=== PATIENT | male | born 1955 | race Caucasian/White ===

== ENCOUNTER → 2017-01-21 | Outpatient (REF) | payer OTHER ==
[2017-01-21 11:43] LABS: ALBUMIN 3.9 GM/DL (3.2-5.2); ALBUMIN/GLOBULIN RATIO 1.44 (1.00-1.93); ALKALINE PHOSPHATASE 54 U/L (45-117); ALT/SGPT 32 U/L (12-78); ANION GAP 6 MEQ/L (8-16); AST/SGOT 24 U/L (15-37); BILIRUBIN,TOTAL 0.8 MG/DL (0.2-1.0); BLOOD UREA NITROGEN 11 MG/DL (7-18); CALCIUM LEVEL 8.9 MG/DL (8.8-10.2); CARBON DIOXIDE LEVEL 32 MEQ/L (21-32); CHLORIDE LEVEL 101 MEQ/L (98-107); CHOLESTEROL LEVEL 132 MG/DL (<200); CREATININE FOR GFR 0.64 MG/DL (0.70-1.30); GLOMERULAR FILTRATION RATE > 60.0 (>49); GLUCOSE, FASTING 142 MG/DL (80-110); POTASSIUM SERUM 4.5 MEQ/L (3.5-5.1); SODIUM LEVEL 139 MEQ/L (136-145); TOTAL PROTEIN 6.6 GM/DL (6.4-8.2); TRIGLYCERIDES LEVEL 176 MG/DL (<150)
== END ==
LOC: M SFHCPLAZ 07:50
PROVIDERS: ATTEND Nurse Practitioner Family
DX: E11.9 Type 2 diabetes mellitus without complications (principal)

== ENCOUNTER → 2017-06-05 | Outpatient (CLI) | payer OTHER ==
[2017-06-05 20:23] LABS: URIC ACID 5.2 MG/DL (3.5-7.2)
[2017-06-10 00:06] LABS: LYME PCR FOR BODY FLUID Negative (Negative)
[2017-06-11 14:15] LABS: Lyme Disease IgG/IgM Antibodie <0.91 ISR (0.00-0.90); Lyme Disease IgM Ab Quantitati <0.80 index (0.00-0.79)
== END ==
LOC: M LRY 09:09
PROVIDERS: ATTEND Orthopaedic Surgery
DX: M72.0 Palmar fascial fibromatosis [Dupuytren] (principal); M79.89 Other specified soft tissue disorders; M65.331 Trigger finger, right middle finger

== ENCOUNTER → 2017-12-06 | Outpatient (REF) | payer OTHER ==
[2017-12-06 11:26] LABS: ALBUMIN 4.1 GM/DL (3.2-5.2); ALBUMIN/GLOBULIN RATIO 1.46 (1.00-1.93); ALKALINE PHOSPHATASE 58 U/L (45-117); ALT/SGPT 30 U/L (12-78); ANION GAP 6 MEQ/L (8-16); AST/SGOT 22 U/L (7-37); BILIRUBIN,TOTAL 0.6 MG/DL (0.2-1.0); BLOOD UREA NITROGEN 11 MG/DL (7-18); CARBON DIOXIDE LEVEL 30 MEQ/L (21-32); CHLORIDE LEVEL 102 MEQ/L (98-107); CREATININE FOR GFR 0.74 MG/DL (0.70-1.30); GLOMERULAR FILTRATION RATE > 60.0 (>49); GLUCOSE, FASTING 162 MG/DL (70-100); POTASSIUM SERUM 4.7 MEQ/L (3.5-5.1); SODIUM LEVEL 138 MEQ/L (136-145); TOTAL PROTEIN 6.9 GM/DL (6.4-8.2)
[2017-12-06 12:38] LABS: ESTIMATED AVERAGE GLUCOSE 197 MG/DL (60-110); HEMOGLOBIN A1c 8.5 %
== END ==
LOC: M SFHCPLAZ 08:27
DX: E11.9 Type 2 diabetes mellitus without complications (principal)

== ENCOUNTER → 2018-03-10 | Outpatient (REF) | payer OTHER | LOC: M SFHCPLAZ 15:11 | DX: E78.5 Hyperlipidemia, unspecified (principal); I10 Essential (primary) hypertension; E11.9 Type 2 diabetes mellitus without complications; M06.4 Inflammatory polyarthropathy ==

== ENCOUNTER → 2018-03-11 | Outpatient (REF) | payer OTHER ==
[2018-03-11 11:20] LABS: BASO % 0.6 % (0.0-1.0); EOS # 0.1 10^3/uL (0.0-0.50); EOS % 1.4 % (0.0-3.0); HEMATOCRIT 38.5 % (42.0-52.0); HEMOGLOBIN 13.4 g/dl (13.5-17.5); IMMATURE GRANULOCYTE % 0.3 % (0-3.0); LYMPH # 1.3 10^3/uL (1.5-4.5); LYMPH % 36.1 % (24.0-44.0); MEAN CORPUSCULAR HEMOGLOBIN 31.4 pg (27.0-33.0); MEAN CORPUSCULAR HGB CONC 34.8 g/dl (32.0-36.5); MEAN CORPUSCULAR VOLUME 90.2 fl (80.0-96.0); MONO # 0.3 10^3/uL (0.0-0.8); MONO % 8.6 % (0.0-5.0); NEUTROPHILS # 1.9 10^3/uL (1.8-7.7); PLATELET COUNT, AUTOMATED 120 10^3/uL (150-450); RED BLOOD COUNT 4.27 10^6/uL (4.30-6.10); RED CELL DISTRIBUTION WIDTH 12.1 % (11.5-14.5); WHITE BLOOD COUNT 3.5 10^3/uL (4.0-10.0)
[2018-03-11 12:18] LABS: ALBUMIN 3.8 GM/DL (3.2-5.2); ALBUMIN/GLOBULIN RATIO 1.36 (1.00-1.93); ALKALINE PHOSPHATASE 55 U/L (45-117); ALT/SGPT 32 U/L (12-78); ANION GAP 5 MEQ/L (8-16); AST/SGOT 20 U/L (7-37); BILIRUBIN,TOTAL 0.5 MG/DL (0.2-1.0); BLOOD UREA NITROGEN 11 MG/DL (7-18); CALCIUM LEVEL 8.8 MG/DL (8.8-10.2); CARBON DIOXIDE LEVEL 31 MEQ/L (21-32); CHLORIDE LEVEL 105 MEQ/L (98-107); CREATININE FOR GFR 0.75 MG/DL (0.70-1.30); GLOMERULAR FILTRATION RATE > 60.0 (>49); GLUCOSE, FASTING 107 MG/DL (70-100); POTASSIUM SERUM 4.4 MEQ/L (3.5-5.1); SODIUM LEVEL 141 MEQ/L (136-145); TOTAL PROTEIN 6.6 GM/DL (6.4-8.2)
[2018-03-11 12:58] LABS: ESTIMATED AVERAGE GLUCOSE 169 MG/DL (60-110); HEMOGLOBIN A1c 7.5 %
== END ==
LOC: M SFHCPLAZ 08:09
DX: E78.5 Hyperlipidemia, unspecified (principal); I10 Essential (primary) hypertension; E11.9 Type 2 diabetes mellitus without complications; M06.4 Inflammatory polyarthropathy

== ENCOUNTER → 2018-06-17 | Outpatient (REF) | payer OTHER ==
[2018-06-17 12:11] LABS: HEMATOCRIT 37.6 % (42.0-52.0); HEMOGLOBIN 12.8 g/dl (13.5-17.5); MEAN CORPUSCULAR HEMOGLOBIN 31.3 pg (27.0-33.0); MEAN CORPUSCULAR VOLUME 91.9 fl (80.0-96.0); PLATELET COUNT, AUTOMATED 101 10^3/uL (150-450); RED BLOOD COUNT 4.09 10^6/uL (4.30-6.10); RED CELL DISTRIBUTION WIDTH 12.5 % (11.5-14.5); WHITE BLOOD COUNT 3.1 10^3/uL (4.0-10.0)
[2018-06-17 12:40] LABS: ALBUMIN 4.1 GM/DL (3.2-5.2); ALBUMIN/GLOBULIN RATIO 1.41 (1.00-1.93); ALKALINE PHOSPHATASE 54 U/L (45-117); ALT/SGPT 34 U/L (12-78); ANION GAP 7 MEQ/L (8-16); AST/SGOT 18 U/L (7-37); BILIRUBIN,TOTAL 0.4 MG/DL (0.2-1.0); BLOOD UREA NITROGEN 12 MG/DL (7-18); CALCIUM LEVEL 9.5 MG/DL (8.8-10.2); CARBON DIOXIDE LEVEL 30 MEQ/L (21-32); CHLORIDE LEVEL 104 MEQ/L (98-107); CHOLESTEROL LEVEL 102 MG/DL (<200); CHOLESTEROL RISK RATIO 2.318 (<5); CREATININE FOR GFR 0.75 MG/DL (0.70-1.30); FREE T4 1.05 NG/DL (0.76-1.46); GLOMERULAR FILTRATION RATE > 60.0 (>49); GLUCOSE, FASTING 124 MG/DL (70-100); HDL CHOLESTEROL 44 MG/DL (>40); LDL CHOLESTEROL 32 MG/DL (<100); NON-HDL-C 58 MG/DL; POTASSIUM SERUM 4.9 MEQ/L (3.5-5.1); PSA SCREENING 0.52 NG/ML (< 4.0); SODIUM LEVEL 141 MEQ/L (136-145); TRIGLYCERIDES LEVEL 129 MG/DL (<150)
[2018-06-17 12:54] LABS: ESTIMATED AVERAGE GLUCOSE 123 MG/DL (60-110); HEMOGLOBIN A1c 5.9 %
[2018-06-17 13:02] LABS: CREATININE, URINE 48.5 MG/DL; MALB URINE SIEMENS 12.1 MG/L
[2018-06-17 13:20] LABS: MAU/CREAT RATIO 24.9 MCG/MG (0.0-30.0)
== END ==
LOC: M SFHCPLAZ 08:45
DX: Z00.00 Encounter for general adult medical examination without abnormal findings (principal); Z12.5 Encounter for screening for malignant neoplasm of prostate; E78.5 Hyperlipidemia, unspecified; E11.9 Type 2 diabetes mellitus without complications; I10 Essential (primary) hypertension; N40.1 Benign prostatic hyperplasia with lower urinary tract symptoms; M06.4 Inflammatory polyarthropathy; G57.91 Unspecified mononeuropathy of right lower limb; Z12.11 Encounter for screening for malignant neoplasm of colon; M25.511 Pain in right shoulder; M06.09 Rheumatoid arthritis without rheumatoid factor, multiple sites; Z23 Encounter for immunization
CPT/HCPCS: 84443

== ENCOUNTER → 2018-06-29 | Outpatient (CLI) | payer OTHER | LOC: M LRY 11:18 | DX: M25.711 Osteophyte, right shoulder (principal); M81.0 Age-related osteoporosis without current pathological fracture; S22.31XD Fracture of one rib, right side, subsequent encounter for fracture with routine healing; M25.511 Pain in right shoulder | CPT/HCPCS: 73030 ==

== ENCOUNTER → 2018-06-29 | Outpatient (REF) | payer OTHER ==
[2018-06-29 13:37] LABS: APPEARANCE, URINE HAZY (CLEAR); BACTERIA, URINE AUTO 1+ (NEGATIVE); BILIRUBIN, URINE AUTO NEGATIVE (NEGATIVE); BLOOD, URINE BLOOD 2+ (NEGATIVE); COLOR, URINE YELLOW (YELLOW); GLUCOSE, URINE (UA) AUTO NEGATIVE (NEGATIVE); KETONE, URINE AUTO NEGATIVE (NEGATIVE); LEUKOCYTE ESTERASE, URINE AUTO NEGATIVE (NEGATIVE); MUCUS, URINE SMALL (NEGATIVE); NITRITE, URINE AUTO NEGATIVE (NEGATIVE); PROTEIN, URINE AUTO NEGATIVE (NEGATIVE); RBC, URINE AUTO TNTC /HPF (0-3); SPECIFIC GRAVITY URINE AUTO 1.018 (1.002-1.035); SQUAMOUS EPITHELIAL CELL UR AU 0 /HPF (0-6); UROBILINOGEN, URINE AUTO 0.2 mg/dL (0.0-2.0); WBC, URINE AUTO 1 /HPF (0-3)
== END ==
LOC: M SMT 13:05
DX: N40.1 Benign prostatic hyperplasia with lower urinary tract symptoms (principal); M81.0 Age-related osteoporosis without current pathological fracture; S22.31XD Fracture of one rib, right side, subsequent encounter for fracture with routine healing; M25.511 Pain in right shoulder
CPT/HCPCS: 81001

== ENCOUNTER → 2018-07-06 | Outpatient (CLI) | payer OTHER | LOC: M SMT 08:43 | DX: N40.1 Benign prostatic hyperplasia with lower urinary tract symptoms (principal) | CPT/HCPCS: 52000; 76857 ==

== ENCOUNTER → 2018-07-12 | Outpatient (CLI) | payer OTHER ==
[2018-07-12 12:22] LABS: HEMATOCRIT 36.3 % (42.0-52.0); HEMOGLOBIN 12.8 g/dl (13.5-17.5); MEAN CORPUSCULAR HEMOGLOBIN 31.7 pg (27.0-33.0); MEAN CORPUSCULAR HGB CONC 35.3 g/dl (32.0-36.5); MEAN CORPUSCULAR VOLUME 89.9 fl (80.0-96.0); PLATELET COUNT, AUTOMATED 103 10^3/uL (150-450); RED BLOOD COUNT 4.04 10^6/uL (4.30-6.10); RED CELL DISTRIBUTION WIDTH 12.1 % (11.5-14.5); WHITE BLOOD COUNT 2.9 10^3/uL (4.0-10.0)
[2018-07-12 12:35] LABS: INR 1.16
[2018-07-12 12:36] LABS: PARTIAL THROMBOPLASTIN TIME 31.6 SECONDS (25.4-37.6)
[2018-07-12 12:46] LABS: ANION GAP 5 MEQ/L (8-16); BLOOD UREA NITROGEN 10 MG/DL (7-18); CALCIUM LEVEL 8.8 MG/DL (8.8-10.2); CARBON DIOXIDE LEVEL 30 MEQ/L (21-32); CHLORIDE LEVEL 103 MEQ/L (98-107); CREATININE FOR GFR 0.72 MG/DL (0.70-1.30); GLOMERULAR FILTRATION RATE > 60.0 (>49); GLUCOSE, FASTING 133 MG/DL (70-100); POTASSIUM SERUM 4.6 MEQ/L (3.5-5.1); SODIUM LEVEL 138 MEQ/L (136-145)
== END ==
LOC: M LAB 11:05
DX: D49.4 Neoplasm of unspecified behavior of bladder (principal); Z01.818 Encounter for other preprocedural examination
CPT/HCPCS: 71046

== ENCOUNTER → 2018-07-14 | Outpatient (CLI) | payer OTHER ==
[~2018-07-14] MED LIST: ISOVUE-370 76% 100ML VIAL (Q9967) As Ordered
== END ==
LOC: M RAD 08:24
DX: R31.29 Other microscopic hematuria (principal); N20.0 Calculus of kidney; R16.1 Splenomegaly, not elsewhere classified
CPT/HCPCS: Q9967

== ENCOUNTER → 2018-08-22 | Outpatient (REF) | payer OTHER ==
[2018-08-22 16:06] LABS: BASO % 0.5 % (0.0-1.0); HEMATOCRIT 38.2 % (42.0-52.0); HEMOGLOBIN 13.5 g/dl (13.5-17.5); IMMATURE GRANULOCYTE % 0.3 % (0-3.0); LYMPH # 1.1 10^3/uL (1.5-4.5); LYMPH % 28.8 % (24.0-44.0); MEAN CORPUSCULAR HEMOGLOBIN 31.3 pg (27.0-33.0); MEAN CORPUSCULAR HGB CONC 35.3 g/dl (32.0-36.5); MEAN CORPUSCULAR VOLUME 88.4 fl (80.0-96.0); MONO # 0.3 10^3/uL (0.0-0.8); MONO % 7.8 % (0.0-5.0); NEUTROPHILS # 2.4 10^3/uL (1.8-7.7); NEUTROPHILS % 61.6 % (36.0-66.0); PLATELET COUNT, AUTOMATED 128 10^3/uL (150-450); RED BLOOD COUNT 4.32 10^6/uL (4.30-6.10); RED CELL DISTRIBUTION WIDTH 11.9 % (11.5-14.5)
[2018-08-22 16:36] LABS: ALBUMIN 3.8 GM/DL (3.2-5.2); ALBUMIN/GLOBULIN RATIO 1.41 (1.00-1.93); ALKALINE PHOSPHATASE 52 U/L (45-117); ALT/SGPT 37 U/L (12-78); ANION GAP 8 MEQ/L (8-16); AST/SGOT 21 U/L (7-37); BILIRUBIN,TOTAL 0.5 MG/DL (0.2-1.0); BLOOD UREA NITROGEN 13 MG/DL (7-18); CALCIUM LEVEL 8.8 MG/DL (8.8-10.2); CARBON DIOXIDE LEVEL 28 MEQ/L (21-32); CHLORIDE LEVEL 103 MEQ/L (98-107); FERRITIN 135 NG/ML (26-388); GLOMERULAR FILTRATION RATE > 60.0 (>49); GLUCOSE, FASTING 131 MG/DL (70-100); POTASSIUM SERUM 4.4 MEQ/L (3.5-5.1); SODIUM LEVEL 139 MEQ/L (136-145); TOTAL PROTEIN 6.5 GM/DL (6.4-8.2)
[2018-08-24 08:07] LABS: HEPATITIS B SURFACE ANTIBODY NEGATIVE (POSITIVE)
[2018-08-24 08:18] LABS: HEPATITIS B SURFACE ANTIGEN NEGATIVE (NEGATIVE)
[2018-08-24 08:47] LABS: HEPATITIS B CORE ANTIBODY IGM NEGATIVE (NEGATIVE); HEPATITIS C VIRUS ABY INDEX 0.1 INDEX (<0.8)
[2018-08-25 00:42] LABS: ANA (HEP2) Negative (.); ANTI-MITOCHONDRIAL ANTIBODY 2.1 Units (0.0-20.0); LIVER-KIDNEY MICROSOMAL ABY 1.2 Units (0.0-20.0)
[2018-08-25 00:42] LABS: ANTI-SMOOTH MUSCLE ANTIBODY 9 Units (0-19)
== END ==
LOC: M SFHCPLAZ 14:06
DX: D61.818 Other pancytopenia (principal); K74.60 Unspecified cirrhosis of liver
CPT/HCPCS: 80053

== ENCOUNTER → 2018-08-26 | Outpatient (REF) | payer OTHER | LOC: M LABSMT 09:36 | DX: D49.4 Neoplasm of unspecified behavior of bladder (principal); Z01.818 Encounter for other preprocedural examination; N39.0 Urinary tract infection, site not specified | CPT/HCPCS: 87086 ==

== ENCOUNTER 2018-09-02 05:47 | Day surgery (SDC) | payer OTHER ==
[2018-09-02] MEDS: LR 1,000 ML IV (06:00)
[2018-09-02 06:29] LABS: BEDSIDE GLUCOSE 245 MG/DL (80-115)
[2018-09-02] MEDS ORDERED: PROPOFOL 200 MG/20 ML VIAL As Ordered (07:11)
[2018-09-02] MEDS ORDERED: ROCURONIUM BROMIDE 50 MG/5 ML VIAL As Ordered (07:11)
[2018-09-02] MEDS ORDERED: LIDOCAINE 2% INJ 100 MG/5 ML SDV (FOR ANES.) As Ordered (07:11)
[2018-09-02] MEDS ORDERED: MIDAZOLAM INJ 2 MG/2 ML VIAL (J2250) As Ordered (07:11)
[2018-09-02] MEDS ORDERED: fentaNYL 250 MCG/5 ML INJECTION (J3010) As Ordered (07:11)
[2018-09-02] MEDS: LevoFLOXacin IV 500 MG in APPROPRIATE DILUENT 1 EA IV (07:30)
[2018-09-02] MEDS: CONRAY-60 60% 50ML VIAL (Q9961) As Ordered (08:00)
[2018-09-02] MEDS ORDERED: PHENYLephrine HCL 500 MCG/5 ML (100MCG/ML) SYRINGE (J2370) As Ordered (08:14)
[2018-09-02] MEDS ORDERED: GLYCOPYRROLATE INJ 0.2 MG/ML 2 ML VIAL As Ordered (08:22)
[2018-09-02] MEDS ORDERED: KETOROLAC 60 MG/2 ML VIAL (J1885) As Ordered (08:23)
[2018-09-02] MEDS ORDERED: ONDANSETRON 4MG/2ML VIAL (J2405) As Ordered (08:23)
[2018-09-02] MEDS ORDERED: NEOSTIGMINE 10 MG/10 ML VIAL (J2710) As Ordered (08:23)
[2018-09-02] MEDS ORDERED: FUROSEMIDE 100 MG/10 ML VIAL (J1940) As Ordered (08:29)
[2018-09-02] MEDS ORDERED: ONDANSETRON 4MG/2ML VIAL (J2405) IV (09:15)
[2018-09-02] MEDS ORDERED: LR 1,000 ML IV (09:15)
[2018-09-02] MEDS: NORCO, ANEXSIA 5/325MG TABLET (HYDROcodone/ACETAMINOPHEN) PO (09:20)
[2018-09-02] MEDS ORDERED: fentaNYL 100 MCG/2 ML INJECTION (J3010) As Ordered (09:26)
[2018-09-02] MEDS: fentaNYL 100 MCG/2 ML INJECTION (J3010) IV (09:29)
[2018-09-02] MEDS: PERCOCET 5MG/325MG TAB PO (11:02)
== END 2018-09-02 12:00 | disposition home or self-care (01) ==
LOC: M SDC 05:47
DX: C67.4 Malignant neoplasm of posterior wall of bladder (principal); N40.1 Benign prostatic hyperplasia with lower urinary tract symptoms; N20.0 Calculus of kidney; I10 Essential (primary) hypertension; E78.5 Hyperlipidemia, unspecified; E11.9 Type 2 diabetes mellitus without complications; Z88.0 Allergy status to penicillin; Z79.82 Long term (current) use of aspirin; Z79.84 Long term (current) use of oral hypoglycemic drugs; Z79.899 Other long term (current) drug therapy; Z87.891 Personal history of nicotine dependence
CPT/HCPCS: 52234

== ENCOUNTER → 2018-09-15 | Outpatient (REF) | payer OTHER ==
[2018-09-15 12:34] LABS: ESTIMATED AVERAGE GLUCOSE 151 MG/DL (60-110); HEMOGLOBIN A1c 6.9 %
== END ==
LOC: M SFHCPLAZ 09:17
DX: E11.9 Type 2 diabetes mellitus without complications (principal)
CPT/HCPCS: 83036

== ENCOUNTER → 2018-10-12 | Outpatient (REF) | payer MEDICARE ==
[~2018-10-12] MED LIST changes: +ASPI1TAB PO; +ATOR80TA59 PO; +BASA100I SC; +FINA5TAB2 PO; +FLOM0.4C39 PO; +GABA-843 PO; -ISOVUE-370 76% 100ML VIAL (Q9967) As Ordered; +LISI10TA4 PO; +METF10004 PO
[2018-10-12 11:41] LABS: APPEARANCE, URINE HAZY (CLEAR); BACTERIA, URINE AUTO 1+ (NEGATIVE); BILIRUBIN, URINE AUTO NEGATIVE (NEGATIVE); BLOOD, URINE BLOOD 3+ (NEGATIVE); COLOR, URINE YELLOW (YELLOW); GLUCOSE, URINE (UA) AUTO NEGATIVE (NEGATIVE); KETONE, URINE AUTO NEGATIVE (NEGATIVE); LEUKOCYTE ESTERASE, URINE AUTO 3+ (NEGATIVE); NITRITE, URINE AUTO NEGATIVE (NEGATIVE); PROTEIN, URINE AUTO NEGATIVE (NEGATIVE); RBC, URINE AUTO 133 /HPF (0-3); SPECIFIC GRAVITY URINE AUTO 1.014 (1.002-1.035); SQUAMOUS EPITHELIAL CELL UR AU 0 /HPF (0-6); UROBILINOGEN, URINE AUTO 0.2 mg/dL (0.0-2.0); WBC, URINE AUTO 66 /HPF (0-3)
[2018-10-12 11:44] LABS: HEMOGLOBIN 13.1 g/dl (13.5-17.5); MEAN CORPUSCULAR HEMOGLOBIN 30.9 pg (27.0-33.0); MEAN CORPUSCULAR HGB CONC 34.5 g/dl (32.0-36.5); MEAN CORPUSCULAR VOLUME 89.6 fl (80.0-96.0); PLATELET COUNT, AUTOMATED 130 10^3/uL (150-450); RED BLOOD COUNT 4.24 10^6/uL (4.30-6.10); WHITE BLOOD COUNT 3.7 10^3/uL (4.0-10.0)
[2018-10-12 11:52] LABS: INR 1.05; PROTHROMBIN TIME 13.8 SECONDS (12.1-14.4)
[2018-10-12 11:53] LABS: PARTIAL THROMBOPLASTIN TIME 30.1 SECONDS (25.4-37.6)
[2018-10-12 12:00] LABS: BLOOD UREA NITROGEN 17 MG/DL (7-18); CALCIUM LEVEL 9.2 MG/DL (8.8-10.2); CARBON DIOXIDE LEVEL 29 MEQ/L (21-32); CHLORIDE LEVEL 101 MEQ/L (98-107); CREATININE FOR GFR 0.77 MG/DL (0.70-1.30); GLOMERULAR FILTRATION RATE > 60.0 (>49); GLUCOSE, FASTING 139 MG/DL (70-100); POTASSIUM SERUM 4.7 MEQ/L (3.5-5.1); SODIUM LEVEL 136 MEQ/L (136-145)
== END ==
LOC: M LABSMT 08:24
PROVIDERS: ATTEND Nurse Practitioner Family
DX: Z01.818 Encounter for other preprocedural examination (principal); N20.0 Calculus of kidney

== ENCOUNTER 2018-10-19 05:54 | Day surgery (SDC) | payer MEDICARE ==
[~2018-10-19] VITALS: Ht 170.2 cm; Wt 89.4 kg
[2018-10-19] MEDS ORDERED: LevoFLOXacin IV 500 MG in APPROPRIATE DILUENT 1 EA IV ONE (06:00)
[2018-10-19] MEDS ORDERED: LR 1,000 ML IV ONE (06:00)
[2018-10-19] MEDS ORDERED: CONRAY-60 60% 50ML VIAL (Q9961) As Ordered ONE (07:13)
[2018-10-19] MEDS ORDERED: dexameTHASONE 4 MG/ML 1ML VIAL (J1100) As Ordered ONE (07:20)
[2018-10-19] MEDS ORDERED: PROPOFOL 200 MG/20 ML VIAL As Ordered ONE ×2 (07:20→07:55)
[2018-10-19] MEDS ORDERED: LIDOCAINE 2% INJ 100 MG/5 ML SDV (FOR ANES.) As Ordered ONE (07:20)
[2018-10-19] MEDS ORDERED: MIDAZOLAM INJ 2 MG/2 ML VIAL (J2250) As Ordered ONE (07:21)
[2018-10-19] MEDS ORDERED: fentaNYL 100 MCG/2 ML INJECTION (J3010) As Ordered ONE (07:21)
[2018-10-19] MEDS ORDERED: ONDANSETRON 4MG/2ML VIAL (J2405) As Ordered ONE (08:05)
[2018-10-19] MEDS ORDERED: PHENYLephrine HCL 500 MCG/5 ML (100MCG/ML) SYRINGE (J2370) As Ordered ONE (08:14)
--- NOTE | 2018-10-19 09:40 | REP ---
Retrograde ureterogram: History: Nephrolithiasis. 13 seconds of fluoroscopy time is reported. Findings: A sequence of eight last image hold fluoroscopically obtained spot radiographs of the abdomen document ureteral cannulation, guidewire manipulation and contrast injection, and double pigtail stent placement. No laterality markers are visible. Electronically Signed by Adolfo Rodriguez MD 10/19/2018 07:34 P
[2018-10-19] MEDS ORDERED: fentaNYL 100 MCG/2 ML INJECTION (J3010) IV PRN (09:45)
[2018-10-19] MEDS ORDERED: LR 1,000 ML IV SCH (09:45)
[2018-10-19] MEDS ORDERED: ONDANSETRON 4MG/2ML VIAL (J2405) IV PRN (09:45)
[2018-10-19] MEDS ORDERED: PERCOCET 5MG/325MG TAB PO PRN (09:45)
[2018-10-19] MEDS ORDERED: LABETALOL HCL 100 MG/20 ML VIAL As Ordered ONE (09:47)
[2018-10-19] MEDS: LABETALOL HCL 100 MG/20 ML VIAL IV PRN ×5 (09:48→10:15)
[2018-10-19 12:55] VITALS: BP 147/85
--- NOTE | 2018-10-20 08:31 | RO ---
DATE OF PROCEDURE: 10/19/2018 PREPROCEDURE DIAGNOSIS: Kidney stones. POSTPROCEDURE DIAGNOSIS: Kidney stones. PROCEDURE: Cystoscopy, right ureteroscopy with laser lithotripsy and basket extraction of stones, right retrograde pyelogram with intraoperative interpretation of the images, right renal stent placement. SURGEON: Dr. Jeremy Araiza. OPINION POLLS SURVEY WORKER: None. ANESTHESIA: General. OPERATIVE INDICATIONS: This is a 63-year-old male who was brought to the operating room a few weeks ago for bladder tumor removal and a button transurethral electrovaporization of the prostate as well as a stent placement for a right kidney stone. He is brought to the operating room today for treatment of his kidney stones. DESCRIPTION OF PROCEDURE: Patient brought to the operating room where general anesthesia was induced. Prophylactic antibiotics were infused. He was then placed in the dorsal lithotomy position and prepped and draped in the usual sterile fashion. A rigid cystoscope was advanced into the urethral meatus and advanced towards the bladder. Of note, the prostatic urethra was wide open. There was mild sloughing of tissue but it was patent. The previously placed stent was seen. I then withdrew the stent till the distal end was protruding from the urethral meatus. I then advanced the wire up the stent into the right collecting system and then the stent was removed. I then advanced the ureteral access sheath up the wire into the right collecting system. The wire was secured to the draped to serve a safety wire. I then utilized the access sheath a flexible ureteral scope and within the renal pelvis, approximately a 1.5 cm stone was seen. The stone was then fragmented into smaller pieces using 200 micron laser fiber and then all of the fragments were removed using a basket. Once that all the fragments were removed, a retrograde pyelogram was performed and notable for mild hydronephrosis with no extravasation. I then withdrew the ureteral access sheath along with the ureteroscope and no additional stones were seen. I then utilized the wire to advance a 6-Faroese x 22-32 cm JJ ureteral stent up the right collecting system. The wire was then removed and there were adequate curls of the stent in the right renal pelvis and in the bladder. The bladder was emptied of all fluids and this marked the conclusion of the procedure. The patient was then taken out of the dorsal lithotomy position, awakened from anesthesia and transported to the recovery room in stable condition. ESTIMATED BLOOD LOSS: 5 mL. COMPLICATIONS: None. SPECIMENS: Kidney stone fragments. PLAN: The patient will followup in the clinic in a few weeks for stent removal and for cystoscopy for surveillance of the bladder cancer. MARCEL
[2018-10-22 00:06] LABS: COMMENT Note: (.); Ca Ox Monohydrate 90 % (.)
== END 2018-10-19 12:55 | disposition home or self-care (01) ==
LOC: M SDC 05:54
PROVIDERS: ATTEND Urology
DX: N20.0 Calculus of kidney (principal); E11.9 Type 2 diabetes mellitus without complications; I10 Essential (primary) hypertension; E78.5 Hyperlipidemia, unspecified; N40.0 Benign prostatic hyperplasia without lower urinary tract symptoms; Z79.84 Long term (current) use of oral hypoglycemic drugs; Z79.82 Long term (current) use of aspirin
CPT/HCPCS: 52356; 74420; 82360; 88300; C1769; C1894; C2617; J1100; J1956; J2250; J2370; J2405; J3010; Q9961

== ENCOUNTER → 2018-10-21 | Outpatient (CLI) | payer MEDICARE ==
[2018-10-21 12:08] LABS: ALBUMIN 3.8 GM/DL (3.2-5.2); BILIRUBIN,DIRECT 0.2 MG/DL (0.0-0.2); BILIRUBIN,TOTAL 0.5 MG/DL (0.2-1.0); PERCENT SATURATION 22.6 % (19.7-50.0); TOTAL PROTEIN 6.5 GM/DL (6.4-8.2)
[2018-10-25 10:16] LABS: HEPATITIS A IgG TOTAL Negative (Negative)
== END ==
LOC: M LRY 09:28
PROVIDERS: ATTEND Internal Medicine Gastroenterology
DX: K74.60 Unspecified cirrhosis of liver (principal)

== ENCOUNTER → 2018-11-02 | Outpatient (CLI) | payer MEDICARE ==
--- NOTE | 2018-11-02 08:24 | REP ---
Clinical: History of cirrhosis pain. Technique: Colindres scale ultrasound using curved array transducer. Findings: The liver and pancreas are normal in contour, size, and echogenicity without focal hepatic or pancreatic lesions identified. Spleen appears enlarged, but without focal splenic lesion or contour abnormality appreciated. Cholelithiasis noted with multiple mobile gallstones. No associated wall thickening or pericholecystic fluid. No biliary ductal dilatation is appreciated, and the common bile duct measures 4.9 mm diameter. The bilateral kidneys demonstrate increased central sinus fat suggesting the possibility of medical renal disease. There is no evidence for hydronephrosis. The right kidney measures 11.1 x 4.8 x 6.8 cm. Left kidney measures 12.3 x 6.4 x 5.9 cm and includes 1.3 cm mid pole cyst. No ascites. Abdominal aorta measures up to 2.7 cm maximal diameter. Impression: 1. Essentially normal appearance to the liver. 2. Cholelithiasis. 3. Splenomegaly suggested without focal splenic lesion. 4. Findings to suggest chronic medical renal disease along with 1.3 cm simple left renal cyst. Electronically Signed by Martin Odom MD 11/02/2018 08:16 A
== END ==
LOC: M RAD 07:32
PROVIDERS: ATTEND Internal Medicine Gastroenterology
DX: K80.20 Calculus of gallbladder without cholecystitis without obstruction (principal); N28.1 Cyst of kidney, acquired

== ENCOUNTER 2018-11-08 08:56 | Day surgery (SDC) | payer MEDICARE ==
[~2018-11-08] VITALS: Ht 170.2 cm; Wt 90.3 kg
[~2018-11-08 08:56] MED LIST changes: +NS 1,000 ML IV ONE
[2018-11-08] MEDS ORDERED: PROPOFOL 500 MG/50 ML VIAL As Ordered ONE (09:52)
[2018-11-08] MEDS ORDERED: LIDOCAINE 2% INJ 100 MG/5 ML SDV (FOR ANES.) As Ordered ONE (09:53)
--- NOTE | 2018-11-08 11:48 | ROOR ---
Patient Name: Davon Lin Procedure Date: 11/08/2018 10:51 AM Date of : 1955 Age: 63 Room: [facility] Gender: Male Note Status: Finalized Procedure: Upper GI endoscopy Indications: Cirrhosis rule out esophageal varices Providers: Cameron Gibson MD Referring MD: Lizbeth Taylor NP Requesting Provider: Medicines: Monitored Anesthesia Care Complications: No immediate complications. Procedure: Pre-Anesthesia Assessment: - Prior to the procedure, a History and Physical was performed, and patient medications and allergies were reviewed. The patient is competent. The risks and benefits of the procedure and the sedation options and risks were discussed with the patient. All questions were answered and informed consent was obtained. Patient identification and proposed procedure were verified by the physician, the nurse and the anesthesiologist in the procedure room. Mental Status Examination: alert and oriented. Airway Examination: normal oropharyngeal airway and neck mobility. Respiratory Examination: clear to auscultation. CV Examination: normal. Prophylactic Antibiotics: The patient does not require prophylactic antibiotics. Prior Anticoagulants: The patient has taken no previous anticoagulant or antiplatelet agents. ASA Grade Assessment: III - A patient with severe systemic disease. After reviewing the risks and benefits, the patient was deemed in satisfactory condition to undergo the procedure. The anesthesia plan was to use monitored anesthesia care (MAC). Immediately prior to administration of medications, the patient was re-assessed for adequacy to receive sedatives. The heart rate, respiratory rate, oxygen saturations, blood pressure, adequacy of pulmonary ventilation, and response to care were monitored throughout the procedure. The physical status of the patient was re-assessed after the procedure. The Endoscope was introduced through the mouth, and advanced to the second part of duodenum. The upper GI endoscopy was accomplished without difficulty. The patient tolerated the procedure well. Findings: The Z-line was irregular and was found 43 cm from the incisors. There is no endoscopic evidence of varices in the entire esophagus. Diffuse moderate inflammation characterized by erythema and granularity was found in the gastric antrum. Biopsies were taken with a cold forceps for Helicobacter pylori testing. Verification of patient identification for the specimen was done by the physician and nurse using the patient's name, date and medical record number. Estimated blood loss was minimal. The duodenal bulb and second portion of the duodenum were normal. Impression: - Z-line irregular, 43 cm from the incisors. - Gastritis. Biopsied. - Normal duodenal bulb and second portion of the duodenum. Recommendation: - Patient has a contact number available for emergencies. The signs and symptoms of potential delayed complications were discussed with the patient. Return to normal activities tomorrow. Written discharge instructions were provided to the patient. - Resume previous diet. - Continue present medications. - Await pathology results. - Based on the biopsy results you will receive a phone call from GI clinic in 2-3 weeks to review the pathology results AND/OR your results will be faxed to your Primary care physician. - Return to primary care physician. Cameron Gibson MD Cameron Gibson MD 11/08/2018 11:47:39 AM This report has been signed electronically. Number of Addenda: 0 Note Initiated On: 11/08/2018 10:51 AM Estimated Blood Loss: Estimated blood loss was minimal.
--- NOTE | 2018-11-08 11:52 | ROOR ---
Patient Name: Davon Lin Procedure Date: 11/08/2018 10:52 AM Date of : 1955 Age: 63 Room: [facility] Gender: Male Note Status: Finalized Procedure: Colonoscopy Indications: Screening for colorectal malignant neoplasm Providers: Cameron Gibson MD Referring MD: Lizbeth Taylor NP Requesting Provider: Medicines: Monitored Anesthesia Care Complications: No immediate complications. Procedure: Pre-Anesthesia Assessment: - Prior to the procedure, a History and Physical was performed, and patient medications and allergies were reviewed. The patient is competent. The risks and benefits of the procedure and the sedation options and risks were discussed with the patient. All questions were answered and informed consent was obtained. Patient identification and proposed procedure were verified by the physician, the nurse and the anesthesiologist in the procedure room. Mental Status Examination: alert and oriented. Airway Examination: normal oropharyngeal airway and neck mobility. Respiratory Examination: clear to auscultation. CV Examination: normal. Prophylactic Antibiotics: The patient does not require prophylactic antibiotics. Prior Anticoagulants: The patient has taken no previous anticoagulant or antiplatelet agents. ASA Grade Assessment: III - A patient with severe systemic disease. After reviewing the risks and benefits, the patient was deemed in satisfactory condition to undergo the procedure. The anesthesia plan was to use monitored anesthesia care (MAC). Immediately prior to administration of medications, the patient was re-assessed for adequacy to receive sedatives. The heart rate, respiratory rate, oxygen saturations, blood pressure, adequacy of pulmonary ventilation, and response to care were monitored throughout the procedure. The physical status of the patient was re-assessed after the procedure. The Colonoscope was introduced through the anus and advanced to the terminal ileum, with identification of the appendiceal orifice and IC valve. The colonoscopy was performed without difficulty. The patient tolerated the procedure well. The quality of the bowel preparation was good. The terminal ileum, ileocecal valve, appendiceal orifice, and rectum were photographed. Scope insertion time was 4 minutes. Scope withdrawal time was 10 minutes. The total duration of the procedure was 14 minutes. Findings: The perianal and digital rectal examinations were normal. The terminal ileum appeared normal. A 8 mm polyp was found in the ascending colon. The polyp was sessile. The polyp was removed with a cold snare. Resection and retrieval were complete. Verification of patient identification for the specimen was done by the physician and nurse using the patient's name, date and medical record number. Estimated blood loss was minimal. A 4 mm polyp was found in the transverse colon. The polyp was sessile. The polyp was removed with a cold snare. Resection and retrieval were complete. Non-bleeding external and internal hemorrhoids were found during retroflexion. The hemorrhoids were medium-sized. Impression: - The examined portion of the ileum was normal. - One 8 mm polyp in the ascending colon, removed with a cold snare. Resected and retrieved. - One 4 mm polyp in the transverse colon, removed with a cold snare. Resected and retrieved. - Non-bleeding external and internal hemorrhoids. Recommendation: - Patient has a contact number available for emergencies. The signs and symptoms of potential delayed complications were discussed with the patient. Return to normal activities tomorrow. Written discharge instructions were provided to the patient. - High fiber diet. - Continue present medications. - Await pathology results. - Repeat colonoscopy in 5-10 years for surveillance based on pathology results. - Based on the biopsy results you will receive a phone call from GI clinic in 2-3 weeks to review the pathology results AND/OR your results will be faxed to your Primary care physician. - Return to primary care physician. Cameron Gibson MD Cameron Gibson MD 11/08/2018 11:51:35 AM This report has been signed electronically. Number of Addenda: 0 Note Initiated On: 11/08/2018 10:52 AM Estimated Blood Loss: Estimated blood loss was minimal.
[2018-11-08 12:00] VITALS: BP 158/86
== END 2018-11-08 12:16 | disposition home or self-care (01) ==
LOC: M OPP 08:56
PROVIDERS: ATTEND Internal Medicine Gastroenterology
DX: Z12.11 Encounter for screening for malignant neoplasm of colon (principal); K64.8 Other hemorrhoids; D12.2 Benign neoplasm of ascending colon; D12.3 Benign neoplasm of transverse colon; K22.8 Other specified diseases of esophagus; K29.70 Gastritis, unspecified, without bleeding; K74.60 Unspecified cirrhosis of liver; Z79.899 Other long term (current) drug therapy; Z87.891 Personal history of nicotine dependence; Z88.0 Allergy status to penicillin; Z79.82 Long term (current) use of aspirin; Z79.84 Long term (current) use of oral hypoglycemic drugs

== ENCOUNTER → 2018-12-16 | Outpatient (REF) | payer MEDICARE ==
[~2018-12-16] MED LIST changes: -NS 1,000 ML IV ONE
[2018-12-16 13:03] LABS: HEMATOCRIT 39.5 % (42.0-52.0); HEMOGLOBIN 13.4 g/dl (13.5-17.5); MEAN CORPUSCULAR HEMOGLOBIN 30.5 pg (27.0-33.0); MEAN CORPUSCULAR HGB CONC 33.9 g/dl (32.0-36.5); PLATELET COUNT, AUTOMATED 121 10^3/uL (150-450); RED BLOOD COUNT 4.39 10^6/uL (4.30-6.10); WHITE BLOOD COUNT 3.5 10^3/uL (4.0-10.0)
[2018-12-16 13:15] LABS: ALT/SGPT 33 U/L (12-78); BILIRUBIN,TOTAL 0.7 MG/DL (0.2-1.0); BLOOD UREA NITROGEN 14 MG/DL (7-18); CALCIUM LEVEL 8.9 MG/DL (8.8-10.2); CARBON DIOXIDE LEVEL 30 MEQ/L (21-32); CHLORIDE LEVEL 102 MEQ/L (98-107); CREATININE FOR GFR 0.83 MG/DL (0.70-1.30); GLOMERULAR FILTRATION RATE > 60.0 (>49); GLUCOSE, FASTING 140 MG/DL (70-100); POTASSIUM SERUM 4.6 MEQ/L (3.5-5.1); SODIUM LEVEL 139 MEQ/L (136-145)
[2018-12-16 13:24] LABS: HEMOGLOBIN A1c 7.4 %
== END ==
LOC: M SFHCPLAZ 09:03
PROVIDERS: ATTEND Nurse Practitioner Family
DX: E11.42 Type 2 diabetes mellitus with diabetic polyneuropathy (principal); K75.81 Nonalcoholic steatohepatitis (NASH); D61.818 Other pancytopenia

== ENCOUNTER → 2019-01-24 | Outpatient (REF) | payer MEDICARE ==
[~2019-01-24] MED LIST changes: -ASPI1TAB PO; +ASPI81TA26 PO
== END ==
LOC: M SMT 18:50
PROVIDERS: ATTEND Urology
DX: C67.9 Malignant neoplasm of bladder, unspecified (principal)

== ENCOUNTER → 2019-03-13 | Outpatient (REF) | payer MEDICARE ==
[2019-03-13 10:50] LABS: HEMATOCRIT 40.8 % (42.0-52.0); HEMOGLOBIN 14.1 g/dl (13.5-17.5); MEAN CORPUSCULAR HEMOGLOBIN 31.7 pg (27.0-33.0); MEAN CORPUSCULAR HGB CONC 34.6 g/dl (32.0-36.5); MEAN CORPUSCULAR VOLUME 91.7 fl (80.0-96.0); PLATELET COUNT, AUTOMATED 112 10^3/uL (150-450); RED BLOOD COUNT 4.45 10^6/uL (4.30-6.10); WHITE BLOOD COUNT 3.9 10^3/uL (4.0-10.0)
[2019-03-13 11:06] LABS: HEMOGLOBIN A1c 6.4 %
[2019-03-13 11:08] LABS: ALT/SGPT 37 U/L (12-78); BILIRUBIN,TOTAL 0.6 MG/DL (0.2-1.0); BLOOD UREA NITROGEN 15 MG/DL (7-18); CALCIUM LEVEL 9.3 MG/DL (8.8-10.2); CARBON DIOXIDE LEVEL 28 MEQ/L (21-32); CHLORIDE LEVEL 104 MEQ/L (98-107); CREATININE FOR GFR 0.82 MG/DL (0.70-1.30); GLOMERULAR FILTRATION RATE > 60.0 (>49); GLUCOSE, FASTING 108 MG/DL (70-100); POTASSIUM SERUM 4.3 MEQ/L (3.5-5.1); SODIUM LEVEL 140 MEQ/L (136-145)
== END ==
LOC: M SFHCPLAZ 09:19
PROVIDERS: ATTEND Nurse Practitioner Family
DX: E11.42 Type 2 diabetes mellitus with diabetic polyneuropathy (principal); E78.5 Hyperlipidemia, unspecified; K75.81 Nonalcoholic steatohepatitis (NASH); K74.60 Unspecified cirrhosis of liver; D61.818 Other pancytopenia
CPT/HCPCS: 36415; 80053; 83036; 85027; G0463

== ENCOUNTER → 2019-05-01 | Outpatient (REF) | payer MEDICARE | LOC: M SMT 16:49 | PROVIDERS: ATTEND Urology | DX: C67.9 Malignant neoplasm of bladder, unspecified (principal) ==

== ENCOUNTER → 2019-05-11 | Outpatient (CLI) | payer MEDICARE ==
--- NOTE | 2019-05-11 15:28 | REP ---
MRI RIGHT SHOULDER: TECHNIQUE: Axial T2 fat sat, gradient echo, sagittal oblique T2 fat sat, coronal oblique T1, T2 fat sat. The supraspinatus tendon demonstrates mild ill-defined high signal compatible with mild tendinopathy/tendinitis. I do not see evidence of rotator cuff tendon tear. There are mild hypertrophic degenerative changes of the acromioclavicular joint with mild downward sloping of the acromion which is type 1. There is mild fluid in the acromioclavicular joint. Biceps tendon is within the bicipital groove with mild surrounding fluid. There is no Hill-Sachs deformity. The deltoid muscle demonstrates no abnormal signal. There is abnormal signal at the biceps labral complex with an apparent tear at the junction of the biceps tendon and anterior superior portion of the labrum. There appears to be a tear undermining the labrum extending posteriorly in the base of the superior labrum. Otherwise, no definite labral tear is seen. There is no bone marrow edema or occult fracture. There is no paralabral cyst. There is mild chondromalacia at the glenohumeral joint. IMPRESSION: Mild supraspinatus tendinopathy/tendinitis. Mild hypertrophic degenerative changes of the acromioclavicular joint. Mild fluid surrounds the biceps tendon in the bicipital groove. There is abnormal signal in the biceps labral complex compatible with a tear. There appears to be a tear of the superior labrum anteriorly, involving about 50-60% of the anterior portion of the superior labrum. This could be confirmed with an MR arthrogram. Electronically Signed by Salvador Colindres MD 05/11/2019 03:31 P
== END ==
LOC: M RAD 11:57
PROVIDERS: ATTEND Orthopaedic Surgery
DX: M75.31 Calcific tendinitis of right shoulder (principal); M19.011 Primary osteoarthritis, right shoulder

== ENCOUNTER → 2019-06-12 | Outpatient (REF) | payer MEDICARE ==
[2019-06-12 12:41] LABS: HEMATOCRIT 39.9 % (42.0-52.0); HEMOGLOBIN 13.7 g/dl (13.5-17.5); MEAN CORPUSCULAR HEMOGLOBIN 31.9 pg (27.0-33.0); MEAN CORPUSCULAR HGB CONC 34.3 g/dl (32.0-36.5); PLATELET COUNT, AUTOMATED 115 10^3/uL (150-450); RED BLOOD COUNT 4.29 10^6/uL (4.30-6.10); WHITE BLOOD COUNT 4.3 10^3/uL (4.0-10.0)
[2019-06-12 12:49] LABS: ALBUMIN 3.7 GM/DL (3.2-5.2); ALT/SGPT 37 U/L (12-78); BILIRUBIN,TOTAL 0.6 MG/DL (0.2-1.0); BLOOD UREA NITROGEN 16 MG/DL (7-18); CALCIUM LEVEL 8.9 MG/DL (8.8-10.2); CARBON DIOXIDE LEVEL 27 MEQ/L (21-32); CHLORIDE LEVEL 100 MEQ/L (98-107); CHOLESTEROL LEVEL 138 MG/DL (<200); CHOLESTEROL RISK RATIO 3.136 (<5); CREATININE FOR GFR 0.85 MG/DL (0.70-1.30); GLOMERULAR FILTRATION RATE > 60.0 (>49); GLUCOSE, FASTING 230 MG/DL (70-100); HDL CHOLESTEROL 44 MG/DL (>40); LDL CHOLESTEROL 62 MG/DL (<100); NON-HDL-C 94 MG/DL; POTASSIUM SERUM 4.8 MEQ/L (3.5-5.1); SODIUM LEVEL 136 MEQ/L (136-145); TOTAL PROTEIN 6.4 GM/DL (6.4-8.2); TRIGLYCERIDES LEVEL 162 MG/DL (<150)
[2019-06-12 13:02] LABS: HEMOGLOBIN A1c 7.6 %
[2019-06-12 13:19] LABS: CREATININE, URINE 86.8 MG/DL; MALB URINE SIEMENS 24.3 MG/L; MAU/CREAT RATIO 27.9 MCG/MG (0.0-30.0)
== END ==
LOC: M SFHCPLAZ 08:00
PROVIDERS: ATTEND Nurse Practitioner Family
DX: K75.81 Nonalcoholic steatohepatitis (NASH) (principal); K74.60 Unspecified cirrhosis of liver; E78.5 Hyperlipidemia, unspecified; E11.42 Type 2 diabetes mellitus with diabetic polyneuropathy

== ENCOUNTER → 2019-06-15 | Outpatient (CLI) | payer MEDICARE ==
[2019-06-15 08:01] LABS: BASO % 0.5 % (0.0-1.0); EOS % 0.7 % (0.0-3.0); HEMATOCRIT 38.3 % (42.0-52.0); HEMOGLOBIN 13.2 g/dl (13.5-17.5); LYMPH # 1.9 10^3/uL (1.5-5.0); LYMPH % 42.4 % (24.0-44.0); MEAN CORPUSCULAR HEMOGLOBIN 31.4 pg (27.0-33.0); MEAN CORPUSCULAR HGB CONC 34.5 g/dl (32.0-36.5); MEAN CORPUSCULAR VOLUME 91.2 fl (80.0-96.0); MONO # 0.4 10^3/uL (0.0-0.8); MONO % 8.6 % (0.0-5.0); NEUTROPHILS # 2.1 10^3/uL (1.5-8.5); NEUTROPHILS % 47.6 % (36.0-66.0); PLATELET COUNT, AUTOMATED 126 10^3/uL (150-450); WHITE BLOOD COUNT 4.4 10^3/uL (4.0-10.0)
[2019-06-15 08:10] LABS: INR 1.09; PROTHROMBIN TIME 13.8 SECONDS (11.8-14.0)
[2019-06-15 08:11] LABS: PARTIAL THROMBOPLASTIN TIME 28.9 SECONDS (25.0-38.4)
[2019-06-15 08:28] LABS: ALBUMIN 3.7 GM/DL (3.2-5.2); BILIRUBIN,DIRECT 0.2 MG/DL (0.0-0.2); BILIRUBIN,TOTAL 0.5 MG/DL (0.2-1.0); TOTAL PROTEIN 6.3 GM/DL (6.4-8.2)
--- NOTE | 2019-06-15 09:32 | REP ---
ULTRASOUND OF THE ABDOMEN: Real-time sonographic evaluation of the abdomen performed. COMPARISON: 11/02/2018 Once again, there are multiple gallstones seen in the gallbladder. There is no gallbladder wall thickening. Common bile duct is upper limits of normal at 7 mm. Liver demonstrates heterogeneous echotexture with no gross mass. Pancreas is not well seen due to overlying bowel gas. Spleen is mildly enlarged measuring 13.7 x 13.7 x 4.9 cm with splenic index 919. Kidneys are normal in size and echotexture, right kidney measuring 12.5 x 6.4 x 7.8 cm and left kidney 12.2 x 5.9 x 5.6 cm. There is no hydronephrosis bilaterally. Possible lower pole stone on the right measures 5 mm and possible stone in the mid left kidney measures 5 mm. There is a cyst in the mid left kidney 1.2 cm in diameter. Abdominal aorta is not dilated, maximum AP diameter proximally 2.6 cm and distally 1.7 cm. No free fluid is seen. The study is limited due to patient body habitus and bowel gas. IMPRESSION: Multiple gallstones are again seen in the gallbladder without gallbladder wall thickening or free fluid. Common bile duct upper limits of normal at 7 mm. Splenomegaly. Possible small calculus in each kidney without hydronephrosis. Electronically Signed by Salvador Colindres MD 06/15/2019 11:40 A
== END ==
LOC: M LAB 06:57 → M RAD 06:57
PROVIDERS: ATTEND Internal Medicine Gastroenterology
DX: K74.60 Unspecified cirrhosis of liver (principal); K80.20 Calculus of gallbladder without cholecystitis without obstruction

== ENCOUNTER → 2019-09-18 | Outpatient (REF) | payer MEDICARE | LOC: M SMT 12:38 | PROVIDERS: ATTEND Urology | DX: C67.9 Malignant neoplasm of bladder, unspecified (principal) ==

== ENCOUNTER → 2019-11-22 | Outpatient (REF) | payer MEDICARE ==
[2019-11-22 12:13] LABS: ALT/SGPT 30 U/L (12-78); BILIRUBIN,TOTAL 0.5 MG/DL (0.2-1.0); BLOOD UREA NITROGEN 8 MG/DL (7-18); CALCIUM LEVEL 8.9 MG/DL (8.8-10.2); CARBON DIOXIDE LEVEL 27 MEQ/L (21-32); CHLORIDE LEVEL 106 MEQ/L (98-107); CHOLESTEROL LEVEL 129 MG/DL (<200); CHOLESTEROL RISK RATIO 3.146 (<5); CREATININE FOR GFR 0.74 MG/DL (0.70-1.30); GLOMERULAR FILTRATION RATE > 60.0 (>49); GLUCOSE, FASTING 80 MG/DL (70-100); HDL CHOLESTEROL 41 MG/DL (>40); LDL CHOLESTEROL 55 MG/DL (<100); NON-HDL-C 88 MG/DL; POTASSIUM SERUM 4.2 MEQ/L (3.5-5.1); SODIUM LEVEL 140 MEQ/L (136-145); TOTAL PROTEIN 6.7 GM/DL (6.4-8.2); TRIGLYCERIDES LEVEL 164 MG/DL (<150)
[2019-11-22 12:20] LABS: CREATININE, URINE 55.4 MG/DL; MALB URINE SIEMENS 22.5 MG/L; MAU/CREAT RATIO 40.6 MCG/MG (0.0-30.0)
[2019-11-22 12:30] LABS: HEMOGLOBIN A1c 6.9 %
== END ==
LOC: M SFHCPLAZ 10:10
PROVIDERS: ATTEND Nurse Practitioner Adult Health
DX: E11.42 Type 2 diabetes mellitus with diabetic polyneuropathy (principal); E78.5 Hyperlipidemia, unspecified
CPT/HCPCS: 36415; 80053; 80061; 82043; 83036; G0463

== ENCOUNTER → 2020-01-01 | Outpatient (CLI) | payer MEDICARE ==
--- NOTE | 2020-01-01 10:43 | REP ---
REASON FOR EXAM: Followup. COMPARISON EXAMINATION: 06/15/2019. Once again, there is evidence of diffuse increased echoes throughout the hepatic parenchyma with a heterogeneous appearing pattern. No intrahepatic ductal dilatation has developed. No distinct hepatic mass has developed. The common bile duct measures approximately 4 mm. Imaging of the gallbladder again shows rather extensive cholelithiasis without definite evidence of development of gallbladder wall thickening or pericholecystic edema, however, the technologist has written on the worksheet that the patient did exhibit a sonography Cordoba's sign. Limited evaluation of the pancreas shows no gross abnormality or significant change from the prior exam. The imaged portion of the right kidney was essentially unchanged from the prior exam. No free fluid was seen within the abdomen. IMPRESSION: 1. No significant change in the appearance of the liver as described above. 2. Known cholelithiasis as described above. 3. No evidence of free fluid. It should be stated that a portal vascular study was not performed. Electronically Signed by Micky Baires DO 01/01/2020 12:56 P
[2020-01-01 11:28] LABS: BILIRUBIN,TOTAL 0.6 MG/DL (0.2-1.0)
[2020-01-01 11:29] LABS: ALBUMIN 3.7 GM/DL (3.2-5.2); BILIRUBIN,DIRECT 0.2 MG/DL (0.0-0.2); TOTAL PROTEIN 7.1 GM/DL (6.4-8.2)
== END ==
LOC: M LRY 08:04
PROVIDERS: ATTEND Internal Medicine Gastroenterology
DX: K74.60 Unspecified cirrhosis of liver (principal)

== ENCOUNTER → 2020-05-03 | Outpatient (REF) | payer MEDICARE ==
[2020-06-20 19:53] LABS: ALBUMIN 3.6 GM/DL (3.2-5.2); ALT/SGPT 27 U/L (12-78); BILIRUBIN,TOTAL 0.6 MG/DL (0.2-1.0); BLOOD UREA NITROGEN 9 MG/DL (7-18); CARBON DIOXIDE LEVEL 29 MEQ/L (21-32); CHLORIDE LEVEL 106 MEQ/L (98-107); CHOLESTEROL LEVEL 107 MG/DL (<200); CHOLESTEROL RISK RATIO 2.972 (<5); CREATININE FOR GFR 0.79 MG/DL (0.70-1.30); GLOMERULAR FILTRATION RATE > 60.0 (>49); GLUCOSE, FASTING 50 MG/DL (70-100); HDL CHOLESTEROL 36 MG/DL (>40); HEMOGLOBIN A1c 5.4 %; LDL CHOLESTEROL 44 MG/DL (<100); NON-HDL-C 71 MG/DL; POTASSIUM SERUM 4.8 MEQ/L (3.5-5.1); SODIUM LEVEL 142 MEQ/L (136-145); TOTAL PROTEIN 6.7 GM/DL (6.4-8.2); TRIGLYCERIDES LEVEL 135 MG/DL (<150)
== END ==
LOC: M SFHCPLAZ 10:01
PROVIDERS: ATTEND Nurse Practitioner Adult Health
DX: E11.42 Type 2 diabetes mellitus with diabetic polyneuropathy (principal)
CPT/HCPCS: 36415; 80053; 80061; 83036; G0463

== ENCOUNTER → 2020-06-28 | Outpatient (REF) | payer MEDICARE | LOC: M SMT 13:16 | PROVIDERS: ATTEND Urology | DX: C67.9 Malignant neoplasm of bladder, unspecified (principal) ==

== ENCOUNTER → 2020-10-17 | Outpatient (REF) | payer MEDICARE ==
[~2020-10-17] MED LIST changes: +GABA-282 PO; -GABA-843 PO
[2020-10-17 11:00] LABS: HEMOGLOBIN A1c 5.7 %
[2020-10-17 11:21] LABS: ALBUMIN 3.9 GM/DL (3.2-5.2); ALT/SGPT 41 U/L (12-78); BILIRUBIN,TOTAL 0.7 MG/DL (0.2-1.0); BLOOD UREA NITROGEN 10 MG/DL (7-18); CALCIUM LEVEL 9.5 MG/DL (8.8-10.2); CARBON DIOXIDE LEVEL 32 MEQ/L (21-32); CHLORIDE LEVEL 105 MEQ/L (98-107); CHOLESTEROL LEVEL 112 MG/DL (<200); CREATININE FOR GFR 0.88 MG/DL (0.70-1.30); GLOMERULAR FILTRATION RATE > 60.0 (>49); GLUCOSE, FASTING 78 MG/DL (70-100); HDL CHOLESTEROL 40 MG/DL (>40); LDL CHOLESTEROL 46 MG/DL (<100); NON-HDL-C 72 MG/DL; POTASSIUM SERUM 5.5 MEQ/L (3.5-5.1); SODIUM LEVEL 138 MEQ/L (136-145); TOTAL PROTEIN 6.8 GM/DL (6.4-8.2); TRIGLYCERIDES LEVEL 132 MG/DL (<150)
[2020-10-17 11:33] LABS: CREATININE, URINE 45.7 MG/DL; MAU/CREAT RATIO 30.6 MCG/MG (0.0-30.0)
== END ==
LOC: M SFHCPLAZ 08:10
PROVIDERS: ATTEND Nurse Practitioner Adult Health
DX: E11.42 Type 2 diabetes mellitus with diabetic polyneuropathy (principal); E78.5 Hyperlipidemia, unspecified

== ENCOUNTER → 2021-01-06 | Outpatient (REF) | payer MEDICARE ==
[~2021-01-06] MED LIST changes: +LISI10TA22 PO; -LISI10TA4 PO
== END ==
LOC: M SMT 13:31
PROVIDERS: ATTEND Urology
DX: C67.9 Malignant neoplasm of bladder, unspecified (principal); Z12.5 Encounter for screening for malignant neoplasm of prostate
CPT/HCPCS: 52000; 88108; G0103

== ENCOUNTER → 2021-01-29 | Outpatient (CLI) | payer MEDICARE ==
--- NOTE | 2021-01-29 12:41 | REP ---
INDICATION: CONTUSION. COMPARISON: Two view chest of 07/12/2018 no prior left rib series. TECHNIQUE: Four views of the left ribs with frontal view of the chest FINDINGS: Multiple views of the left ribs show no definite evidence of an acute fracture or osseous lesion, however, the examination is limited due to an excess of quantum mottle significantly degrading the image quality of the mid and lower left ribs. The accompanying frontal view of the chest shows subtle patchy left lower lobe opacities with slight left CP angle blunting. IMPRESSION: 1. I cannot rule out the possibility of a fracture involving the lower left ribs due to technique as described above. Repeat examination is recommended. 2. Left lower lobe opacities as described above possibly reflecting subsegmental atelectatic change from respiratory splinting due to a left lower rib injury. <Electronically signed by Micky Baires > 01/29/21 [id number]
== END ==
LOC: M WUC 11:56
PROVIDERS: ATTEND Physician Assistant
DX: S20.212A Contusion of left front wall of thorax, initial encounter (principal); W18.30XA Fall on same level, unspecified, initial encounter; Y92.009 Unspecified place in unspecified non-institutional (private) residence as the place of occurrence of the external cause

== ENCOUNTER → 2021-04-16 | Outpatient (CLI) | payer MEDICARE ==
[2021-04-16 12:40] LABS: CREATININE, URINE 64.5 MG/DL; MALB URINE SIEMENS 18.3 MG/L; MAU/CREAT RATIO 28.3 MCG/MG (0.0-30.0)
[2021-04-16 12:42] LABS: ALBUMIN 3.9 GM/DL (3.2-5.2); ALT/SGPT 30 U/L (12-78); BILIRUBIN,TOTAL 0.6 MG/DL (0.2-1.0); BLOOD UREA NITROGEN 13 MG/DL (7-18); CALCIUM LEVEL 8.9 MG/DL (8.8-10.2); CARBON DIOXIDE LEVEL 28 MEQ/L (21-32); CHLORIDE LEVEL 105 MEQ/L (98-107); CHOLESTEROL LEVEL 134 MG/DL (<200); CHOLESTEROL RISK RATIO 3.435 (<5); GLOMERULAR FILTRATION RATE > 60.0 (>49); GLUCOSE, FASTING 132 MG/DL (70-100); HDL CHOLESTEROL 39 MG/DL (>40); LDL CHOLESTEROL 66 MG/DL (<100); NON-HDL-C 95 MG/DL; SODIUM LEVEL 138 MEQ/L (136-145); TOTAL PROTEIN 6.9 GM/DL (6.4-8.2); TRIGLYCERIDES LEVEL 143 MG/DL (<150)
== END ==
LOC: M PLALAB 08:45
PROVIDERS: ATTEND Nurse Practitioner Adult Health
DX: E11.42 Type 2 diabetes mellitus with diabetic polyneuropathy (principal); I10 Essential (primary) hypertension; E78.5 Hyperlipidemia, unspecified
CPT/HCPCS: 36415; 80053; 80061; 82043; 83036; G0463

== ENCOUNTER → 2021-10-21 | Outpatient (CLI) | payer MEDICARE ==
[2021-10-21 11:45] LABS: HEMOGLOBIN A1c 7.6 %
[2021-10-21 13:25] LABS: ALBUMIN 3.8 GM/DL (3.2-5.2); ALT/SGPT 34 U/L (12-78); BILIRUBIN,TOTAL 0.5 MG/DL (0.2-1.0); BLOOD UREA NITROGEN 16 MG/DL (7-18); CALCIUM LEVEL 9.3 MG/DL (8.8-10.2); CARBON DIOXIDE LEVEL 29 MEQ/L (21-32); CHLORIDE LEVEL 105 MEQ/L (98-107); CHOLESTEROL LEVEL 138 MG/DL (<200); CHOLESTEROL RISK RATIO 3.833 (<5); CREATININE FOR GFR 1.16 MG/DL (0.70-1.30); GLOMERULAR FILTRATION RATE > 60.0 (>49); GLUCOSE, FASTING 234 MG/DL (70-100); HDL CHOLESTEROL 36 MG/DL (>40); LDL CHOLESTEROL 66 MG/DL (<100); NON-HDL-C 102 MG/DL; POTASSIUM SERUM 5.7 MEQ/L (3.5-5.1); SODIUM LEVEL 139 MEQ/L (136-145); TRIGLYCERIDES LEVEL 180 MG/DL (<150)
[2021-10-21 14:00] LABS: MALB URINE SIEMENS 46.7 MG/L; MAU/CREAT RATIO 26.9 MCG/MG (0.0-30.0)
== END ==
LOC: M PLALAB 08:19
PROVIDERS: ATTEND Nurse Practitioner Adult Health
DX: E11.42 Type 2 diabetes mellitus with diabetic polyneuropathy (principal); I10 Essential (primary) hypertension; E78.5 Hyperlipidemia, unspecified

== ENCOUNTER → 2022-01-05 | Outpatient (REF) | payer MEDICARE | LOC: M SMT 12:48 | PROVIDERS: ATTEND Urology | DX: C67.9 Malignant neoplasm of bladder, unspecified (principal); N36.9 Urethral disorder, unspecified ==

== ENCOUNTER → 2022-02-19 | Outpatient (CLI) | payer MEDICARE ==
[~2022-02-19] MED LIST changes: +CYCL-707; +GABA600T4; +TRUL10IN
== END ==
LOC: M LABSMTC 09:21
PROVIDERS: ATTEND Anesthesiology
DX: Z20.822 Contact with and (suspected) exposure to COVID-19 (principal)

== ENCOUNTER 2022-02-24 06:30 | Day surgery (SDC) | payer MEDICARE ==
[~2022-02-24] VITALS: Ht 170.2 cm; Wt 87.1 kg
[~2022-02-24 06:30] MED LIST changes: +NS 1,000 ML IV ONE
[2022-02-24] MEDS ORDERED: LIDOCAINE 2% 100MG/5ML SDV (FOR ANES.) As Ordered ONE (08:53)
[2022-02-24] MEDS ORDERED: propofoL 200 MG/20 ML VIAL As Ordered ONE (08:53)
[2022-02-24 09:00] VITALS: BP 156/84
== END 2022-02-24 09:13 | disposition home or self-care (01) ==
LOC: M OPP 06:30
PROVIDERS: ATTEND Internal Medicine Gastroenterology
DX: Z12.11 Encounter for screening for malignant neoplasm of colon (principal); Z86.010 Personal history of colon polyps; Z80.0 Family history of malignant neoplasm of digestive organs; K64.8 Other hemorrhoids; Z79.02 Long term (current) use of antithrombotics/antiplatelets; Z79.82 Long term (current) use of aspirin; Z79.899 Other long term (current) drug therapy; Z88.0 Allergy status to penicillin; Z85.51 Personal history of malignant neoplasm of bladder

== ENCOUNTER → 2022-04-20 | Outpatient (CLI) | payer MEDICARE ==
[~2022-04-20] MED LIST changes: -NS 1,000 ML IV ONE
== END ==
LOC: M WHC 08:29
PROVIDERS: ATTEND Internal Medicine Gastroenterology
DX: K76.0 Fatty (change of) liver, not elsewhere classified (principal)

== ENCOUNTER → 2022-04-27 | Outpatient (CLI) | payer MEDICARE ==
[2022-04-27 10:51] LABS: HEMOGLOBIN A1c 7.9 %
[2022-04-27 11:00] LABS: ALBUMIN 3.6 GM/DL (3.2-5.2); ALT/SGPT 29 U/L (12-78); BILIRUBIN,TOTAL 0.6 MG/DL (0.2-1.0); BLOOD UREA NITROGEN 15 MG/DL (7-18); CALCIUM LEVEL 9.1 MG/DL (8.8-10.2); CARBON DIOXIDE LEVEL 28 MEQ/L (21-32); CHLORIDE LEVEL 108 MEQ/L (98-107); CHOLESTEROL LEVEL 130 MG/DL (<200); CHOLESTEROL RISK RATIO 4.062 (<5); CREATININE FOR GFR 1.02 MG/DL (0.70-1.30); FREE T4 0.91 NG/DL (0.76-1.46); GLOMERULAR FILTRATION RATE > 60.0 (>49); GLUCOSE, FASTING 132 MG/DL (70-100); HDL CHOLESTEROL 32 MG/DL (>40); LDL CHOLESTEROL 59 MG/DL (<100); NON-HDL-C 98 MG/DL; POTASSIUM SERUM 4.9 MEQ/L (3.5-5.1); SODIUM LEVEL 140 MEQ/L (136-145); TOTAL PROTEIN 6.5 GM/DL (6.4-8.2); TRIGLYCERIDES LEVEL 196 MG/DL (<150)
[2022-04-27 11:48] LABS: MALB URINE SIEMENS 12.5 MG/L; MAU/CREAT RATIO 12.1 MCG/MG (0.0-30.0)
== END ==
LOC: M PLALAB 08:15
PROVIDERS: ATTEND Nurse Practitioner Adult Health
DX: E78.5 Hyperlipidemia, unspecified (principal); E11.42 Type 2 diabetes mellitus with diabetic polyneuropathy; I10 Essential (primary) hypertension

== ENCOUNTER → 2022-07-09 | Outpatient (CLI) | payer MEDICARE ==
[~2022-07-09] MED LIST changes: -CYCL-707; +CYCL-707 PO; -GABA600T4; +GABA600T4 PO; +PREDNISONE TAPER PO; -TRUL10IN; +TRUL10IN SC
== END ==
LOC: M LABSMTC 09:41
PROVIDERS: ATTEND Anesthesiology
DX: Z01.812 Encounter for preprocedural laboratory examination (principal); Z20.822 Contact with and (suspected) exposure to COVID-19

== ENCOUNTER 2022-07-14 06:20 | Day surgery (SDC) | payer MEDICARE ==
[~2022-07-14] VITALS: Ht 167.6 cm; Wt 88.5 kg
[~2022-07-14 06:20] MED LIST changes: +NS 1,000 ML IV ONE
[2022-07-14] MEDS ORDERED: propofoL 500 MG/50 ML VIAL As Ordered ONE (06:51)
[2022-07-14 08:40] VITALS: BP 141/75
== END 2022-07-14 09:04 | disposition home or self-care (01) ==
LOC: M OPP 06:20
PROVIDERS: ATTEND Internal Medicine Gastroenterology
DX: Z86.010 Personal history of colon polyps (principal); D12.2 Benign neoplasm of ascending colon; K64.4 Residual hemorrhoidal skin tags; K64.8 Other hemorrhoids; K21.00 Gastro-esophageal reflux disease with esophagitis, without bleeding; K22.89 Other specified disease of esophagus; K31.89 Other diseases of stomach and duodenum; K74.60 Unspecified cirrhosis of liver; Z79.02 Long term (current) use of antithrombotics/antiplatelets; Z79.4 Long term (current) use of insulin; Z79.82 Long term (current) use of aspirin; Z79.899 Other long term (current) drug therapy; Z88.0 Allergy status to penicillin; E11.9 Type 2 diabetes mellitus without complications; N40.0 Benign prostatic hyperplasia without lower urinary tract symptoms; Z85.51 Personal history of malignant neoplasm of bladder; Z87.442 Personal history of urinary calculi; Z87.891 Personal history of nicotine dependence; Z80.42 Family history of malignant neoplasm of prostate

== ENCOUNTER → 2022-10-14 | Outpatient (CLI) | payer MEDICARE ==
[~2022-10-14] MED LIST changes: -NS 1,000 ML IV ONE
[2022-10-14 11:06] LABS: BLOOD UREA NITROGEN 15 MG/DL (9-23); CREATININE FOR GFR 0.83 MG/DL (0.70-1.30); GLOMERULAR FILTRATION RATE > 60.0 (>49)
== END ==
LOC: M LAB 09:19
PROVIDERS: ATTEND Physical Medicine & Rehabilitation
DX: M47.892 Other spondylosis, cervical region (principal)

== ENCOUNTER → 2022-10-19 | Outpatient (CLI) | payer MEDICARE ==
[~2022-10-19] MED LIST changes: +PROHANCE 279.3MG/ML 15ML VIAL As Ordered ONE; +PROHANCE 279.3MG/ML 5ML VIAL As Ordered ONE
== END ==
LOC: M RAD 12:17
PROVIDERS: ATTEND Physical Medicine & Rehabilitation
DX: M47.892 Other spondylosis, cervical region (principal)
CPT/HCPCS: 72156; A9576

== ENCOUNTER → 2022-11-09 | Outpatient (CLI) | payer MEDICARE ==
[~2022-11-09] MED LIST changes: -PROHANCE 279.3MG/ML 15ML VIAL As Ordered ONE; -PROHANCE 279.3MG/ML 5ML VIAL As Ordered ONE
[2022-11-09 11:15] LABS: ALBUMIN 3.7 G/DL (3.2-5.2); ALKALINE PHOSPHATASE 81 U/L (46-116); ALT/SGPT 24 U/L (7.0-40); AST/SGOT 27 U/L (<34); BILIRUBIN,TOTAL 0.6 MG/DL (0.3-1.2); BLOOD UREA NITROGEN 15 MG/DL (9-23); CARBON DIOXIDE LEVEL 29 MMOL/L (20-31); CHLORIDE LEVEL 104 MMOL/L (98-107); CHOLESTEROL LEVEL 120 MG/DL (<200); CHOLESTEROL RISK RATIO 3.53 (<5); CREATININE FOR GFR 0.86 MG/DL (0.70-1.30); GLOMERULAR FILTRATION RATE > 60.0 (>49); GLUCOSE, FASTING 141 MG/DL (74-106); HDL CHOLESTEROL 33.9 MG/DL (>40); LDL CHOLESTEROL 43.3 MG/DL (<100); NON-HDL-C 86 MG/DL; POTASSIUM SERUM 4.9 MMOL/L (3.5-5.1); SODIUM LEVEL 140 MMOL/L (136-145); THYROID STIMULATING HORMONE 3.326 uIU/ML (0.55-4.78); TOTAL PROTEIN 6.3 G/DL (5.7-8.2); TRIGLYCERIDES LEVEL 214 MG/DL (<150)
[2022-11-09 11:28] LABS: HEMOGLOBIN A1c 6.8 % (4.0-6.0)
[2022-11-09 11:40] LABS: CREATININE, URINE 146.6 MG/DL; MAU/CREAT RATIO 8.1 MCG/MG (0.0-30.0)
== END ==
LOC: M PLALAB 08:05
PROVIDERS: ATTEND Nurse Practitioner Adult Health
DX: E11.42 Type 2 diabetes mellitus with diabetic polyneuropathy (principal); I10 Essential (primary) hypertension; E78.5 Hyperlipidemia, unspecified

== ENCOUNTER → 2023-01-04 | Outpatient (REF) | payer MEDICARE | LOC: M SMT 09:59 | PROVIDERS: ATTEND Urology | DX: C67.9 Malignant neoplasm of bladder, unspecified (principal) ==

== ENCOUNTER → 2023-04-21 | Outpatient (CLI) | payer MEDICARE | LOC: M PLALAB 11:37 | PROVIDERS: ATTEND Urology | DX: Z12.5 Encounter for screening for malignant neoplasm of prostate (principal) ==

== ENCOUNTER → 2023-04-21 | Outpatient (CLI) | payer MEDICARE ==
[2023-04-21 14:23] LABS: HEMATOCRIT 41.4 % (42.0-52.0); HEMOGLOBIN 14.1 g/dl (13.5-17.5); MEAN CORPUSCULAR HEMOGLOBIN 31.3 pg (27.0-33.0); MEAN CORPUSCULAR HGB CONC 34.1 g/dl (32.0-36.5); MEAN CORPUSCULAR VOLUME 91.8 fl (80.0-96.0); PLATELET COUNT, AUTOMATED 118 10^3/uL (150-450); RED BLOOD COUNT 4.51 10^6/uL (4.30-6.10); WHITE BLOOD COUNT 4.4 10^3/uL (4.0-10.0)
[2023-04-21 14:36] LABS: HEMOGLOBIN A1c 6.6 % (4.0-6.0)
[2023-04-21 14:53] LABS: FERRITIN 39.2 NG/ML (10.5-307.3)
[2023-04-21 14:54] LABS: ALBUMIN 3.8 G/DL (3.2-5.2); ALKALINE PHOSPHATASE 93 U/L (46-116); ALT/SGPT 27 U/L (7.0-40); AST/SGOT 18 U/L (<34); BILIRUBIN,TOTAL 0.8 MG/DL (0.3-1.2); BLOOD UREA NITROGEN 11 MG/DL (9-23); CALCIUM LEVEL 9.2 MG/DL (8.3-10.6); CARBON DIOXIDE LEVEL 29 MMOL/L (20-31); CHLORIDE LEVEL 106 MMOL/L (98-107); CHOLESTEROL LEVEL 110 MG/DL (<200); CHOLESTEROL RISK RATIO 3.29 (<5); CREATININE FOR GFR 0.96 MG/DL (0.70-1.30); FREE T4 0.89 NG/DL (0.89-1.76); GLOMERULAR FILTRATION RATE > 60.0 (>49); GLUCOSE, FASTING 72 MG/DL (74-106); HDL CHOLESTEROL 33.4 MG/DL (>40); LDL CHOLESTEROL 45.4 MG/DL (<100); NON-HDL-C 76.6 MG/DL; POTASSIUM SERUM 4.9 MMOL/L (3.5-5.1); SODIUM LEVEL 143 MMOL/L (136-145); TOTAL PROTEIN 6.7 G/DL (5.7-8.2); TRIGLYCERIDES LEVEL 156 MG/DL (<150)
[2023-04-21 16:21] LABS: MALB URINE SIEMENS < 3.0 MG/L
[2023-04-21 16:22] LABS: MAU/CREAT RATIO 6.2 MCG/MG (0.0-30.0)
== END ==
LOC: M PLALAB 11:34
PROVIDERS: ATTEND Nurse Practitioner Adult Health
DX: E11.42 Type 2 diabetes mellitus with diabetic polyneuropathy (principal); K74.60 Unspecified cirrhosis of liver; I10 Essential (primary) hypertension; E78.5 Hyperlipidemia, unspecified

== ENCOUNTER → 2023-07-12 | Outpatient (CLI) | payer MEDICARE ==
[2023-07-13 12:08] LABS: IgG P18 AB Absent (.); IgG P23 AB Absent (.); IgG P28 AB Absent (.); IgG P30 AB Absent (.); IgG P39 AB Absent (.); IgG P41 AB Absent (.); IgG P45 AB Absent (.); IgG P66 AB Absent (.); IgG P93 AB Present (.); IgM P23 AB Absent (.); IgM P39 AB Absent (.); IgM P41 AB Absent (.); LYME IgG WB INTERPRETATION Negative (.); LYME IgM WB INTERPRETATION Negative (.)
== END ==
LOC: M PLALAB 07:05
PROVIDERS: ATTEND Nurse Practitioner Adult Health
DX: S40.862A Insect bite (nonvenomous) of left upper arm, initial encounter (principal); W18.30XA Fall on same level, unspecified, initial encounter; Y92.009 Unspecified place in unspecified non-institutional (private) residence as the place of occurrence of the external cause

== ENCOUNTER → 2023-10-28 | Outpatient (CLI) | payer MEDICARE ==
[2023-10-28 13:11] LABS: THYROID STIMULATING HORMONE 2.106 uIU/ML (0.55-4.78)
[2023-10-28 13:12] LABS: FERRITIN 29.7 NG/ML (10.5-307.3)
[2023-10-28 13:13] LABS: ALBUMIN 3.8 G/DL (3.2-5.2); ALKALINE PHOSPHATASE 94 U/L (46-116); ALT/SGPT 25 U/L (7.0-40); AST/SGOT 15 U/L (<34); BILIRUBIN,TOTAL 0.8 MG/DL (0.3-1.2); BLOOD UREA NITROGEN 16 MG/DL (9-23); CALCIUM LEVEL 9.2 MG/DL (8.3-10.6); CARBON DIOXIDE LEVEL 32 MMOL/L (20-31); CHLORIDE LEVEL 103 MMOL/L (98-107); CREATININE FOR GFR 0.87 MG/DL (0.70-1.30); FREE T4 1.01 NG/DL (0.89-1.76); GLOMERULAR FILTRATION RATE > 60.0 (>42); GLUCOSE, FASTING 223 MG/DL (74-106); POTASSIUM SERUM 5.1 MMOL/L (3.5-5.1); SODIUM LEVEL 139 MMOL/L (136-145); TOTAL PROTEIN 6.7 G/DL (5.7-8.2)
[2023-10-28 13:22] LABS: HEMATOCRIT 43.2 % (42.0-52.0); HEMOGLOBIN 14.7 g/dl (13.5-17.5); MEAN CORPUSCULAR HEMOGLOBIN 31.1 pg (27.0-33.0); MEAN CORPUSCULAR VOLUME 91.5 fl (80.0-96.0); PLATELET COUNT, AUTOMATED 148 10^3/uL (150-450); RED BLOOD COUNT 4.72 10^6/uL (4.30-6.10)
[2023-10-28 13:34] LABS: CREATININE, URINE 92.9 MG/DL; MAU/CREAT RATIO 10.7 MCG/MG (0.0-30.0)
[2023-10-28 13:35] LABS: HEMOGLOBIN A1c 8.8 % (4.0-6.0)
== END ==
LOC: M PLALAB 07:13
PROVIDERS: ATTEND Nurse Practitioner Adult Health
DX: I10 Essential (primary) hypertension (principal); D50.9 Iron deficiency anemia, unspecified

== ENCOUNTER → 2024-01-31 | Outpatient (REF) | payer MEDICARE | LOC: M SMT 12:56 | PROVIDERS: ATTEND Urology | DX: C67.9 Malignant neoplasm of bladder, unspecified (principal) ==

== ENCOUNTER → 2024-03-06 | Outpatient (CLI) | payer MEDICARE ==
[2024-03-06 11:56] LABS: HEMATOCRIT 40.8 % (42.0-52.0); HEMOGLOBIN 13.6 g/dl (13.5-17.5); MEAN CORPUSCULAR HEMOGLOBIN 30.8 pg (27.0-33.0); MEAN CORPUSCULAR HGB CONC 33.3 g/dl (32.0-36.5); MEAN CORPUSCULAR VOLUME 92.3 fl (80.0-96.0); PLATELET COUNT, AUTOMATED 110 10^3/uL (150-450); RED BLOOD COUNT 4.42 10^6/uL (4.30-6.10); WHITE BLOOD COUNT 3.6 10^3/uL (4.0-10.0)
[2024-03-06 12:00] LABS: ALBUMIN 3.4 G/DL (3.2-5.2); ALKALINE PHOSPHATASE 94 U/L (46-116); ALT/SGPT 22 U/L (7.0-40); AST/SGOT 14 U/L (<34); BILIRUBIN,TOTAL 0.7 MG/DL (0.3-1.2); BLOOD UREA NITROGEN 15 MG/DL (9-23); CALCIUM LEVEL 8.7 MG/DL (8.3-10.6); CARBON DIOXIDE LEVEL 29 MMOL/L (20-31); CHLORIDE LEVEL 109 MMOL/L (98-107); CHOLESTEROL LEVEL 115 MG/DL (<200); CHOLESTEROL RISK RATIO 3.68 (<5); CREATININE FOR GFR 0.86 MG/DL (0.70-1.30); FREE T4 0.79 NG/DL (0.89-1.76); GLOMERULAR FILTRATION RATE > 60.0 (>42); GLUCOSE, FASTING 126 MG/DL (74-106); HDL CHOLESTEROL 31.2 MG/DL (>40); NON-HDL-C 83.8 MG/DL; POTASSIUM SERUM 4.8 MMOL/L (3.5-5.1); SODIUM LEVEL 141 MMOL/L (136-145); TOTAL PROTEIN 6.1 G/DL (5.7-8.2); TRIGLYCERIDES LEVEL 194 MG/DL (<150)
[2024-03-06 12:01] LABS: FERRITIN 25.9 NG/ML (10.5-307.3); THYROID STIMULATING HORMONE 2.753 uIU/ML (0.55-4.78)
[2024-03-06 12:32] LABS: CREATININE, URINE 112.5 MG/DL; MAU/CREAT RATIO 4.4 MCG/MG (0.0-30.0)
[2024-03-06 12:54] LABS: HEMOGLOBIN A1c 7.6 % (4.0-6.0)
== END ==
LOC: M PLALAB 07:39
PROVIDERS: ATTEND Nurse Practitioner Adult Health
DX: E78.5 Hyperlipidemia, unspecified (principal); D50.9 Iron deficiency anemia, unspecified

== ENCOUNTER → 2024-10-09 | Outpatient (CLI) | payer MEDICARE ==
[~2024-10-09] MED LIST changes: +GABA-1172 PO; +GABA-1490 PO; -GABA-282 PO; -GABA600T4 PO
[2024-10-09 10:46] LABS: HEMATOCRIT 40.9 % (42.0-52.0); MEAN CORPUSCULAR HEMOGLOBIN 31.3 pg (27.0-33.0); MEAN CORPUSCULAR HGB CONC 34.2 g/dl (32.0-36.5); MEAN CORPUSCULAR VOLUME 91.5 fl (80.0-96.0); PLATELET COUNT, AUTOMATED 133 10^3/uL (150-450); RED BLOOD COUNT 4.47 10^6/uL (4.30-6.10); WHITE BLOOD COUNT 4.2 10^3/uL (4.0-10.0)
[2024-10-09 10:47] LABS: ALBUMIN 3.8 G/DL (3.2-5.2); ALKALINE PHOSPHATASE 88 U/L (40-129); ALT/SGPT 30 U/L (7.0-40); AST/SGOT 21 U/L (<34); BILIRUBIN,TOTAL 0.9 MG/DL (0.3-1.2); BLOOD UREA NITROGEN 15 MG/DL (9-23); CALCIUM LEVEL 9.8 MG/DL (8.3-10.6); CARBON DIOXIDE LEVEL 30 MMOL/L (20-31); CHLORIDE LEVEL 103 MMOL/L (98-107); CHOLESTEROL LEVEL 149 MG/DL (<200); CHOLESTEROL RISK RATIO 4.61 (<5); CREATININE FOR GFR 0.88 MG/DL (0.70-1.30); GLOMERULAR FILTRATION RATE > 60.0 (>42); GLUCOSE, FASTING 212 MG/DL (74-106); HDL CHOLESTEROL 32.3 MG/DL (>40); LDL CHOLESTEROL 58.7 MG/DL (<100); NON-HDL-C 116.7 MG/DL; POTASSIUM SERUM 5.3 MMOL/L (3.5-5.1); SODIUM LEVEL 140 MMOL/L (136-145); TOTAL PROTEIN 6.6 G/DL (5.7-8.2); TRIGLYCERIDES LEVEL 290 MG/DL (<150)
[2024-10-09 10:50] LABS: FERRITIN 53.7 NG/ML (10.5-307.3); FREE T4 1.04 NG/DL (0.89-1.76); THYROID STIMULATING HORMONE 2.119 uIU/ML (0.55-4.78)
[2024-10-09 11:04] LABS: CREATININE, URINE 88.1 MG/DL; MAU/CREAT RATIO 23.8 MCG/MG (0.0-30.0)
[2024-10-09 11:07] LABS: HEMOGLOBIN A1c 8.7 % (4.0-6.0)
== END ==
LOC: M PLALAB 07:48
PROVIDERS: ATTEND Nurse Practitioner Adult Health
DX: I10 Essential (primary) hypertension (principal); D50.9 Iron deficiency anemia, unspecified

== ENCOUNTER → 2025-01-29 | Outpatient (REF) | payer MEDICARE ==
[~2025-01-29] MED LIST changes: -FLOM0.4C39 PO; +TAMS-18 PO
== END ==
LOC: M SMT 13:14
PROVIDERS: ATTEND Urology
DX: C67.9 Malignant neoplasm of bladder, unspecified (principal)

== ENCOUNTER → 2025-02-19 | Outpatient (CLI) | payer MEDICARE ==
[2025-02-19 11:18] LABS: HEMATOCRIT 41.2 % (42.0-52.0); HEMOGLOBIN 13.9 g/dl (13.5-17.5); MEAN CORPUSCULAR HEMOGLOBIN 31.6 pg (27.0-33.0); MEAN CORPUSCULAR HGB CONC 33.7 g/dl (32.0-36.5); MEAN CORPUSCULAR VOLUME 93.6 fl (80.0-96.0); PLATELET COUNT, AUTOMATED 118 10^3/uL (150-450); WHITE BLOOD COUNT 4.1 10^3/uL (4.0-10.0)
[2025-02-19 11:19] LABS: ALBUMIN 3.9 G/DL (3.2-5.2); BILIRUBIN,TOTAL 0.8 MG/DL (0.3-1.2); CALCIUM LEVEL 9.4 MG/DL (8.3-10.6); CHOLESTEROL RISK RATIO 4.3 (<5); CREATININE FOR GFR 0.94 MG/DL (0.70-1.30); GLOMERULAR FILTRATION RATE 86.7 (>42); HDL CHOLESTEROL 32.5 MG/DL (>40); LDL CHOLESTEROL 61.3 MG/DL (<100); NON-HDL-C 107.5 MG/DL; POTASSIUM SERUM 5.5 MMOL/L (3.5-5.1); TOTAL PROTEIN 6.6 G/DL (5.7-8.2)
[2025-02-19 11:21] LABS: FREE T4 1.02 NG/DL (0.89-1.76); THYROID STIMULATING HORMONE 2.409 uIU/ML (0.55-4.78)
[2025-02-19 11:33] LABS: HEMOGLOBIN A1c 8.8 % (4.0-6.0)
== END ==
LOC: M PLALAB 08:09
PROVIDERS: ATTEND Nurse Practitioner Adult Health
DX: I10 Essential (primary) hypertension (principal); Z12.5 Encounter for screening for malignant neoplasm of prostate; K74.60 Unspecified cirrhosis of liver; E78.5 Hyperlipidemia, unspecified; E11.42 Type 2 diabetes mellitus with diabetic polyneuropathy
CPT/HCPCS: 36415; 80053; 80061; 83036; 84439; 84443; 85027; G0103

== ENCOUNTER → 2025-02-19 | Outpatient (CLI) | payer MEDICARE | LOC: M PLALAB 08:12 | PROVIDERS: ATTEND Urology | DX: Z12.5 Encounter for screening for malignant neoplasm of prostate (principal) | CPT/HCPCS: 36415; G0103 ==

== ENCOUNTER → 2025-05-16 | Outpatient (CLI) | payer MEDICARE ==
[2025-05-16 10:28] LABS: PLATELET COUNT, AUTOMATED 141 10^3/uL (150-450)
[2025-05-16 10:34] LABS: ALT/SGPT 27 U/L (7.0-40); AST/SGOT 23 U/L (<34); CALCIUM LEVEL 8.7 MG/DL (8.3-10.6); CARBON DIOXIDE LEVEL 29 MMOL/L (20-31); CHLORIDE LEVEL 106 MMOL/L (98-107); CHOLESTEROL LEVEL 140 MG/DL (<200); CHOLESTEROL RISK RATIO 4.53 (<5); CREATININE FOR GFR 0.80 MG/DL (0.70-1.30); GLOMERULAR FILTRATION RATE > 90.0 (>42); LDL CHOLESTEROL 58.1 MG/DL (<100); NON-HDL-C 109.1 MG/DL; POTASSIUM SERUM 5.1 MMOL/L (3.5-5.1); SODIUM LEVEL 144 MMOL/L (136-145); TRIGLYCERIDES LEVEL 255 MG/DL (<150)
[2025-05-16 10:36] LABS: FREE T4 0.96 NG/DL (0.89-1.76)
[2025-05-16 11:03] LABS: ESTIMATED AVERAGE GLUCOSE 114.0 MG/DL (60-110)
[2025-05-16 11:36] LABS: CREATININE, URINE 75.9 MG/DL
[2025-05-16 11:37] LABS: MALB URINE SIEMENS 5.0 MG/L; MAU/CREAT RATIO 6.5 MCG/MG (0.0-30.0)
== END ==
LOC: M PLALAB 08:00
PROVIDERS: ATTEND Nurse Practitioner Adult Health
DX: E11.42 Type 2 diabetes mellitus with diabetic polyneuropathy (principal); I10 Essential (primary) hypertension; K74.60 Unspecified cirrhosis of liver

== ENCOUNTER → 2025-09-03 | Outpatient (CLI) | payer MEDICARE ==
[2025-09-03 10:45] LABS: ALT/SGPT 25.0 U/L (7.0-40); AST/SGOT 25.0 U/L (<34); CALCIUM LEVEL 9.1 MG/DL (8.3-10.6); CARBON DIOXIDE LEVEL 29.0 MMOL/L (20-31); CHLORIDE LEVEL 103.0 MMOL/L (98-107); CHOLESTEROL LEVEL 99.0 MG/DL (<200); CHOLESTEROL RISK RATIO 3.2 (<5); CREATININE FOR GFR 0.98 MG/DL (0.70-1.30); GLOMERULAR FILTRATION RATE 81.9 (>42); LDL CHOLESTEROL 28.1 MG/DL (<100); NON-HDL-C 68.1 MG/DL; POTASSIUM SERUM 4.9 MMOL/L (3.5-5.1); SODIUM LEVEL 142.0 MMOL/L (136-145); TRIGLYCERIDES LEVEL 200.0 MG/DL (<150)
[2025-09-03 10:54] LABS: ESTIMATED AVERAGE GLUCOSE 131.0 MG/DL (60-110)
== END ==
LOC: M PLALAB 08:02
PROVIDERS: ATTEND Nurse Practitioner Adult Health
DX: E11.42 Type 2 diabetes mellitus with diabetic polyneuropathy (principal); E78.5 Hyperlipidemia, unspecified